=== PATIENT | male | born 1960 | race Hispanic/Latino ===

== ENCOUNTER 2022-12-30 10:19 | Outpatient (CLI) | payer MEDICARE | END 2022-12-30 10:20 | disposition home or self-care (01) | LOC: RAD 10:19 | PROVIDERS: ATTEND Podiatrist | DX: M25.572 Pain in left ankle and joints of left foot (principal); E11.9 Type 2 diabetes mellitus without complications; M19.90 Unspecified osteoarthritis, unspecified site | CPT/HCPCS: 36415; 84550 ==

== ENCOUNTER 2023-08-05 11:06 | Emergency (ER) | payer MEDICARE ==
[2023-08-05] MEDS ORDERED: Dexamethasone 10 MG/ML VIAL ONE (12:01)
[2023-08-05] MEDS ORDERED: Acetaminophen 500 MG TAB ONE (12:01)
== END 2023-08-05 13:50 | disposition home or self-care (01) ==
LOC: ERS 11:06
DX: B34.9 Viral infection, unspecified (principal); E11.9 Type 2 diabetes mellitus without complications
CPT/HCPCS: 71045; 87081; 87430; J1100

== ENCOUNTER 2025-01-03 14:12 | Emergency (ER) | payer MEDICARE | END 2025-01-03 15:25 | disposition home or self-care (01) | LOC: ERS 14:12 | DX: S90.01XA Contusion of right ankle, initial encounter (principal); E11.9 Type 2 diabetes mellitus without complications; Z79.84 Long term (current) use of oral hypoglycemic drugs; V49.40XA Driver injured in collision with unspecified motor vehicles in traffic accident, initial encounter; Y92.410 Unspecified street and highway as the place of occurrence of the external cause | CPT/HCPCS: 99284 ==